=== PATIENT | female | born 2000 | race Caucasian/White ===

== ENCOUNTER 2020-12-25 12:31 | Emergency (ER) | payer MEDICAID ==
[~2020-12-25] VITALS: Ht 152.4 cm; Wt 95.3 kg
[2020-12-25 12:55] VITALS: Ht 152.4 cm; Wt 95.3 kg
[2020-12-25 15:00] VITALS: BP 115/80
== END 2020-12-25 15:00 | disposition home or self-care (01) ==
LOC: ED 12:31
DX: O9A.211 Injury, poisoning and certain other consequences of external causes complicating pregnancy, first trimester (principal); S83.8X2A Sprain of other specified parts of left knee, initial encounter; Z3A.00 Weeks of gestation of pregnancy not specified; X50.1XXA Overexertion from prolonged static or awkward postures, initial encounter; Y93.89 Activity, other specified; Y92.89 Other specified places as the place of occurrence of the external cause; Y99.8 Other external cause status